=== PATIENT | female | born 1945 | race Caucasian/White ===

== ENCOUNTER 2019-06-18 12:51 | Emergency (ER) | payer MEDICARE ==
[2019-06-18 13:12] VITALS: BP 158/72
--- NOTE | 2019-06-18 13:18 | UC ---
Skin Complaint HPI - HPI Summary HPI Summary: Pt's own cat scratched her on the dorsum of right hand last evening. The cat is up to date on immunizations. Pt. states she reached over to pet the cat and she was scratched. Today it is warm, red, tender, swollen with red streaks up her arm. - History of Current Complaint Chief Complaint: UCBiteInjury Time Seen by Provider: 06/18/19 13:04 Stated Complaint: CAT SCRATCH Hx Obtained From: Patient ?: No Onset/Duration: Gradual Onset Skin Exposure Onset/Duration: Hours Ago Timing: Constant Onset Severity: Mild Current Severity: Moderate Pain Intensity: 8 Location: Hand (Right) Character: Swelling, Redness, Painful Aggravating Factor(s): Touch Alleviating Factor(s): Nothing Associated Signs & Symptoms: Positive: Bruising, Tenderness, Red Streaks - Allergy/Home Medications Allergies/Adverse Reactions: Allergies Allergy/AdvReac Type Severity Reaction Status Date / Time ampicillin Allergy Hives Verified 06/18/19 13:07 Home Medications: Home Medications Cholecalciferol TAB* [Vitamin D TAB*] 2,000 units PO DAILY 06/18/19 [History Confirmed 06/18/19] Lisinopril [Prinivil TAB 20 mg] 20 mg PO DAILY 06/18/19 [History Confirmed 06/18] Rosuvastatin (NF) [Crestor (NF)] 5 mg PO DAILY 06/18/19 [History Confirmed 06/18] Ubidecarenone [Co Q10] 200 mg PO DAILY 06/18/19 [History Confirmed 06/18/19] Vitamin B Complex CAP* [B Complex CAP*] 1 cap PO DAILY 06/18/19 [History Confirmed 06/18/19] celeCOXIB CAP* [CeleBREX CAP*] 100 mg PO DAILY 06/18/19 [History Confirmed 06/18] PMH/Surg Hx/FS Hx/Imm Hx - Additional Past Medical History Additional PMH: Anemia Previously Healthy: Yes Cardiovascular History: Hypertension - Surgical History Surgical History: Yes Surgery Procedure, Year, and Place: Left TKA, 2011, [place]; [place], 1970 1968 - Family History Known Family History: Positive: Non-Contributory Family History: no known cardio vascular disease - Social History Occupation: Retired Alcohol Use: Occasionally Substance Use Type: None Smoking Status (MU): Heavy Every Day Tobacco Smoker Type: Cigarettes Amount Used/How Often: 1/2 PPD Length of Time of Smoking/Using Tobacco: Since Age 14 (Quit for ~25 Years) - Immunization History Most Recent Tetanus Shot: 03/10/16 Review of Systems All Other Systems Reviewed And Are Negative: Yes Constitutional: Positive: Fever - Low grade fever here but not at home. Skin: Positive: Other - Small area of bruising, red, warm and tender with red streaks Motor: Positive: Negative Neurovascular: Positive: Negative Musculoskeletal: Positive: Negative Neurological: Positive: Negative Psychological: Positive: Negative Is Patient Immunocompromised?: No Physical Exam Triage Information Reviewed: Yes Appearance: Well-Appearing, No Pain Distress, Well-Nourished Vital Signs: Initial Vital Signs Temp 99.2 F 06/18/19 13:04 Pulse 94 06/18/19 13:04 Resp 16 06/18/19 13:04 BP 158/72 06/18/19 13:04 Pulse Ox 98 06/18/19 13:04 Vital Signs Reviewed: Yes Musculoskeletal: Positive: Strength Intact, ROM Intact, Other: - Good finger strength with flexion/extension against resistance. Neurological: Positive: Alert, Muscle Tone Normal Psychological Exam: Normal Skin: Positive: Other - Dorsum of right hand warm, red, tender, mildly swollen. Epitrochlear lymph nodes not enlarged or tender. Pt had 3 faint red streaks up wrist and forearm(marked by nurse). Very small bruise to dorsum ulnar side. Course/Dx - Course Course Of Treatment: Discussed with Dr. Horne because pt is allergic to Ampicillin, will treat with a Zpak, warm compresses and DEFINITE follow up with PCP tomorrow for a recheck. To go to ER if worsening symptoms. - Diagnoses Provider Diagnosis: Cat scratch of hand, Cellulitis of right hand Discharge ED - Sign-Out/Discharge Documenting (check all that apply): Patient Departure All imaging exams completed and their final reports reviewed: No Studies - Discharge Plan Condition: Fair Disposition: HOME Prescriptions: Azithromyxin ANTONINA (NF) [Z-Antonina (Zithromax) 250 mg tabs #6] 2 tab PO .TODAY, THEN 1 DAILY #6 tab Patient Education Materials: Cellulitis (DC) Referrals: Shar Landin MD [Primary Care Provider] - Additional Instructions: Warm, moist compresses to the red areas. Definite follow up with your primary care provider TOMORROW for a recheck. If you develop worsening symptoms, fever, chills, go to the ER. - Billing Disposition and Condition Condition: FAIR Disposition: Home
== END 2019-06-18 13:26 | disposition home or self-care (01) ==
LOC: UCCORT 12:51
DX: S60.511A Abrasion of right hand, initial encounter (principal); L03.113 Cellulitis of right upper limb; I10 Essential (primary) hypertension; R50.9 Fever, unspecified; F17.210 Nicotine dependence, cigarettes, uncomplicated; Z79.899 Other long term (current) drug therapy; Z88.0 Allergy status to penicillin; W55.03XA Scratched by cat, initial encounter; Y92.9 Unspecified place or not applicable
CPT/HCPCS: 99212; G0463